=== PATIENT | female | born 1975 | race Caucasian/White ===

== ENCOUNTER 2025-05-10 14:44 | Outpatient (REF) | payer BC, SELFPAY ==
--- NOTE | 2025-05-10 | EMG_ITS ---
Chief complaint: numbness, weakness left quadricep Reason for referral: weakness left quadricep Referred by:?Bharati Barton PAC Procedure done: Left lower extremity NCS/EMG Description: Left tibial and peroneal motor studies were performed with F responses and tibial H-reflex was obtained. Left superficial peroneal and sural sensory studies were performed and median and lateral mixed plantars sensory studies were performed and needle examination was performed. Impression: This is an unremarkable study with no evidence of sensory or motor peripheral neuropathy or entrapment neuropathy or a proximal lesion. [facility]
--- OUTSIDE RECORDS SUMMARY | 2025-05-10 17:11 | XMS_ITS | Clinical Summary ---
Author Organization [facility] Address [address] [place] [address] Phone Care Team Providers Care Answering Service Telephone Operator Name Role Phone Ad Sandra MD Primary Care Provider + [phone] Allergies Active Allergy Reactions Criticality Noted Date Comments Adhesive Tape-Silicones 04/27/2025 Moxifloxacin 04/27/2025 Duloxetine 04/27/2025 Gluten 04/27/2025 Lactose 04/27/2025 Penicillin 04/27/2025 Beclomethasone Dipropionate 04/27/20 25 Medications ALPRAZolam (XANAX) 0.25 mg tablet Take 1 tablet (0.25 mg total) by mouth 3 (three) times a day if needed. for anxiety Max Daily Amount: 0.75 mg 04/17/20 25 Active azithromycin (ZITHROMAX) 250 mg tablet TAKE 2 TABLETS BY MOUTH ON DAY 1, AND THEN TAKE 1 TABLET BY MOUTH ONCE A DAY ON DAY 2 THROUGH DAY 5 10/29/19 25 Active chlorhexidine (PERIDEX) 0.12 % solution GENTLY RINSE MOUTH WITH 15ML TWICE DAILY DIRECTED DO NOT SWALLOW 10/29/19 25 Active cyclobenzaprine (FLEXERIL) 10 mg tablet TAKE 1 TABLET BY MOUTH THREE TIMES DAILY NEEDED FOR MUSCLE SPASM. MAY SEDATE. DO NOT DRIVE OR OPERATE HEAVY MACHINERY 03/18/20 25 Active Arnuity Ellipta 100 mcg/actuation blister with device inhaler Inhale 1 puff by mouth 1 (one) time each day at the same time. 04/17/20 25 Active ibuprofen (ADVIL,MOTRIN) 800 mg tablet TAKE 1 TABLET BY MOUTH THREE TIMES DAILY FOR SWELLING 10/29/19 25 Active levalbuterol (XOPENEX HFA) 45 mcg/actuation inhaler 2 puffs every 6 (six) hours. 11/15/19 25 Active loratadine (CLARITIN REDITABS) 10 mg dispersible tablet Dissolve 1 tablet (10 mg total) on top of the tongue 1 (one) time each day. Active hydrocortisone 2.5 % cream apply one application topically twice daily for 7 days 01/28/20 025 Discontinued Active Problems Problem Noted Date Diagnosed Date Weakness of left quadriceps muscle 04/27/2025 Assessment & Plan (04/27/2025 3:44 PM EDT): Patient has had 1+ month of low back pressure, left mid anterior thigh to mid sherwood/medial calf numbness, lower quad weakness. She recalls 03/16/2025 having some lumbar pressure and taking ibuprofen. When she got up in the morning 03/17/2025 after standing about 5 minutes in the shower she started getting increased low back pain, her quad was weak, she had fallen a few times when the quad would not function properly. She gets numbness in the medial anterior leg that has not improved over time. Some of the weakness has improved. She cannot recall any particular inciting event, trauma to the leg, fevers, flu symptoms, rash, tick bite, vaccines around that time, does not wear any tight belts or tight clothing. She does not have any blurred vision, neck pain, arm symptoms. She recalls in 2018 she had an episode where she felt weak bilaterally and fatigued, could not cook pickled meat her feet well, had to stop running, had difficulty with stairs. They did lots of blood work, the only thing that came back abnormal with slightly increased KYLIE, ruled out MS, EMGs came back normal. That resolved on its own. 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 She has been modifying her regular exercises, doing PT style exercises including quad strengthening, avoiding heavy weightlifting and running, is walking regularly. Patient had lumbar spine MRI 04/09/2025 [facility] with minimal degenerative changes including L5-S1 mild left central disc bulging/ small annular tear, she has tall disks, no significant central or foraminal stenosis at any level. We reviewed MRI images together on the computer. Ms. Rosas has unexplained left distal quad and proximal sherwood/calf numbness, quad weakness, has had a couple falls, no significant findings on lumbar MRI. We will check lower extremity EMG/NCS. She does have history of unexplained fatigue and weakness in 2018 that resolved on its own, slightly elevated KYLIE, ruled out MS, EMGs at that time were normal per patient. I will review all her results with Dr. Ziegler once the EMG is completed. If needed we can refer her to neurology or rheumatology. All questions answered. Encounters Date Type Department Care Team Description 05/04/2025 Telephone Neurosurgery [address] [address] Sol Yanez [place] 04/27/2025 2:00 PM EDT Consult [address] [address] Bharati Barton PA Weakness of left quadriceps muscle (Primary Dx) from Last 3 Months Surgical History Surgery Date Site/Laterality Comments APPENDECTOMY 1989 KNEE SURGERY Left knee chondroplasty EXCISIONAL HEMORRHOIDECTOMY With fistulotomy SECTION WISDOM TOOTH EXTRACTION Medical History Medical History Date Comments Asthma 2010 Migraine Family History Medical History Relation Name Comments Heart disease Father Ramon Shaffer Cancer Sister Rocío Arredondo Relation Name Status Comments Father Ramon Shaffer Sister Rocío Arredondo Social History Tobacco Use Types Packs/Day Years Used Date Smoking Tobacco: Former Cigarettes Smokeless Tobacco: Former Alcohol Use Standard Drinks/Week Comments Yes 5 (1 standard drink = 0.6 oz pur e alcohol) Comments Unknown Sex and Gender Information Value Date Recorded Sex Assigned at Not on file Legal Sex Female 10:27 AM EDT Gender Identity Not on file Sexual Orientation Not on file Obstetrics History Last Filed Vital Signs Vital Sign Reading Time Taken Comments Blood Pressure - - Pulse - - Temperature - - Respiratory Rate - - Oxygen Saturation - - Inhaled Oxygen Concentration - - Weight 50.8 kg (112 lb) 04/27/2025 2:07 PM EDT Height 157.5 cm (5' 2 ) 04/27/2025 2:07 PM EDT Body Mass Index 20.49 04/27/2025 2:07 PM EDT Plan of Treatment Health Maintenance Due Date Last Done Comments Breast Cancer Screening 1975 Colorectal Cancer Screening: Colonoscopy 1975 DTaP,Tdap,and Td Vaccines (1 - Tdap) 1992 Hepatitis B Vaccines (1 of 3 - 19+ 3-dose series) 1992 Cervical Cancer Screening: Pap Smear 1994 Pneumococcal Vaccine: 50+ Years (1 of 1 - PCV) 2023 Zoster Vaccines (1 of 2) 2023 Depression Screening 08/05/2024 COVID-19 Vaccine (4 - season) 2025 06/16/2021, 08/31/2020, 08/03/2020 Influenza Vaccine (#1) 2025 , 05/24/2023, 05/03/2022, Additional history exists HIV Screening 04/23/2025 Hepatitis C Screening 04/23/2025 Social Influencers of Health Screening 04/23/2025 RSV Immunization Adult Patients (1 - 1-dose 75+ series) 2048 HIB Vaccines Aged Out No longer eligi ble based on patient's age to complete this topic HPV Vaccines Aged Out No longer eligi ble based on patient's age to complete this topic Hepatitis A Vaccines Aged Out No long er eligible based on patient's age to complete this topic IPV Vaccines Aged Out No longer eligi ble based on patient's age to complete this topic MMR Vaccines Aged Out No longer eligi ble based on patient's age to complete this topic Meningococcal ACWY Vaccine Aged Out N o longer eligible based on patient's age to complete this topic Meningococcal B Vaccine Aged Out No l onger eligible based on patient's age to complete this topic RSV Immunization Patients Under 20 months Aged Out No longer eligible based on patient's age to complete this topic Varicella Vaccines Aged Out No longer eligible based on patient's age to complete this topic Insurance [facility] Care Teams Answering Service Telephone Operator Relationship Specialty Start Date End Date Ad Sandra MD [address] [place] [id number] PCP - General Internal Medicine 04/27/25
== END 2025-05-10 14:45 | disposition home or self-care (01) ==
LOC: HO.NEURO 14:44
PROVIDERS: Visit Provider Physician Assistant
DX: M62.81 Muscle weakness (generalized) (principal)
CPT/HCPCS: 95886; 95910

== ENCOUNTER → 2025-05-10 15:09 | Outpatient (BNV) | payer BC, SELFPAY | PROVIDERS: Visit Provider Psychiatry & Neurology Neurology | DX: R53.1 Weakness (principal); R20.2 Paresthesia of skin | CPT/HCPCS: 95886; 95910 ==

== ENCOUNTER 2025-06-23 13:31 | Outpatient (AMB) | payer BC, SELFPAY ==
--- OUTSIDE RECORDS SUMMARY | 2024-08-07 08:45 | XMS_ITS ---
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 Name Role Phone Angela Murrieta Primary Care Provider Unavaila Prahba Styles [phone] Encounters Encounter Location Date Provider Diagnosis [address] [address] 08/07/2024 Prabha Marquez Plan Of Treatment No Information Progress Notes * Gabrielle ROSAS MDOB: [birth year] (49 yo F)Acc No.[id number]:08/07/2024 Progress Notes Patient: Shannan DE LEÓNGabrielle REILLY Provider: Shannan Marquez DPM :1975 A ge:48 Y S ex:Female Date:08/07/2024 Address:[address] [place], [place] [id number] Pcp:Angela Murrieat Subjective: * Chief Complaints: * * Medical History: Objective: * Vitals: Assessment: Plan: * Treatment: * Images: * The named appointment provid er may or may not be the originator of this progress note, and it is not deemed complete until electronically signed by the appointment provider. Sign off status: Pending * Provider: Shannan Marquez DPM Date: 0 08/07/2024 Generated for Lashondai ng/Famalathig/eTransmitting on: 08/24/2024 01:32 AM EST
--- OUTSIDE RECORDS SUMMARY | 2025-06-19 23:59 | XMS_ITS | Continuity of Care Document ---
Author Organization [facility] Address [address] [address]- Support Name Relationship Address Phone PARDEEP LÓPEZ Unknown Unavailable NIKKI, BAUTITSA Personal Relationship Unknown Unava ilable NIKKI, BAUTISTA Personal Relationship Unknown Unava ilable NIKKI, BAUTISTA Personal Relationship Unknown Unava ilable NIKKI, BAUTISTA Personal Relationship Unknown Unava ilable JURCZYK, CHET Other Unknown Unavailabl e NIKKI, BAUTISTA Personal Relationship Unknown Unava ilable NIKKI, BAUTISTA Personal Relationship Unknown Unava ilable NIKKI, BAUTISTA Personal Relationship Unknown Unava ilable NIKKI, BAUTISTA Personal Relationship Unknown Unava ilable NIKKI, BAUTISTA Personal Relationship Unknown Unava ilable NIKKI, BAUTISTA Personal Relationship Unknown Unava ilable NIKKI, BAUTISTA Personal Relationship Unknown Unava ilable OLENA WOLFF domestic partner Unknown Unavail able NIKKI, BAUTISTA Personal Relationship Unknown Unava ilable NIKKI, BAUTISTA Personal Relationship Unknown Unava ilable NIKKI, BAUTISTA Personal Relationship Unknown Unava ilable NIKKI, BAUTISTA spouse Unknown Unavailable LOOKNER, CHET sibling Unknown Unavailabl e NIKKI, BAUTISTA Personal Relationship Unknown Unava ilable NIKKI, BAUTISTA Personal Relationship Unknown Unava ilable NIKKI, BAUTISTA Personal Relationship Unknown Unava ilable NIKKI, JOAQUIN sibling Unknown Unavailable NIKKI, BAUTISTA Personal Relationship Unknown Unava ilable NIKKI, BAUTISTA Personal Relationship Unknown Unava ilable NIKKI, BAUTISTA Personal Relationship Unknown Unava ilable NIKKI, BAUTISTA Personal Relationship Unknown Unava ilable JURCZRK, JOAQUIN sibling Unknown Unavailable Care Team Providers Care Rag Boiler Name Role Phone Agustin Patel MD, Sonny Ramos Primary Care Physic hernán Encounter [facility] Date(s): 05/20/25 - 06/19/25 [facility] [address] [place] [address]- Encounter Type: Triage Allergies, Adverse Reactions, Alerts Substance Criticality Severity Reaction Reaction Severity Status codeine VOMITS Active penicillin HIVES Active Imitrex Active Avelox HIVES Active Duloxetine dilation Active Demerol VOMITS Active Glutens GI symptoms Active Tape adhesive tape-rash A ctive Qvar tingling, lip swelling Active Immunizations Given and Recorded Vaccine Date Status Refusal Reason influenza virus vaccine, inactivated 05/22/24 Benito rded influenza virus vaccine, inactivated 05/24/23 Benito rded influenza virus vaccine, inactivated 05/03/22 Benito rded influenza virus vaccine, inactivated 05/23/21 Benito rded influenza virus vaccine, inactivated 05/09/20 Benito rded influenza virus vaccine, inactivated 05/15/18 Benito rded influenza virus vaccine, inactivated 05/30/17 Benito rded SARS-CoV-2 (COVID-19) mRNA-1273 vaccine 06/16/21 R ecorded SARS-CoV-2 (COVID-19) mRNA-1273 vaccine 08/31/20 R ecorded SARS-CoV-2 (COVID-19) mRNA-1273 vaccine 08/03/20 R ecorded tetanus/diphtheria/pertussis, acel(Tdap) 1 01/20/18 Given 1Result Comment: [01/20/2018] [facility]# [id number] pt. tolerated inj. without complications...CO Medications ALPRAZolam 0.25 mg oral tablet See Instructions, TAKE 1 TABLET BY MOUTH THREE TIMES A DAY NEEDED FOR ANXIETY, # 30 tablet, Refills 5, Tot. Refills 5, Maintenance, 12/07/24 3:42:00 PM EDT, Instructions Replace Required Details, Route to Pharmacy Electronically, [id number], 157, cm, 11/09/24 14:29:00 EDT, Height, 54.5,kg, 11/06/24 14:44:00 EDT, Dry Weight Start Date: 12/07/24 Status: Ordered Medication Dispense Status: Completed Quantity: 30.0 Unit: tablet Total Allowed Fills: 6 Fills Dispensed: 0 ALPRAZolam 0.25 mg oral tablet See Instructions, TAKE 1 TABLET BY MOUTH THREE TIMES A DAY NEEDED FOR ANXIETY, # 30 tablet, Refills 5, Tot. Refills 5, Maintenance, 05/24/25 9:47:00 PM EDT, Instructions Replace Required Details, Route to Pharmacy Electronically, [facility], 157, cm, 05/11/25 11:08:00 EDT, Height, 52.6, kg, 05/11/25 11:08:00 EDT, Dry Weight Start Date: 05/24/25 Status: Ordered Medication Dispense Status: Completed Quantity: 30.0 Unit: tablet Total Allowed Fills: 6 Fills Dispensed: 0 Arnuity Ellipta 100 mcg inhalation powder 1 puffs, Inhalation, Every 24 hours, # 30 each, 11 Refills, Maintenance, 10/30/24 4:20:00 PM EDT, [facility], 158, cm, 10/22/23 12:59:00 EDT, Height Start Date: 10/30/24 Status: Ordered Medication Dispense Status: Completed Quantity: 30.0 Unit: each Total Allowed Fills: 1 Fills Dispensed: 0 Golytely - oral powder for reconstitution See Instructions, Follow instructions from GI, # 4,000 mL, 0 Refills, Maintenance, 11/09/24 2:46:00 PM EDT, [facility], Partial fill upon patient request if the prescription is for a schedule II opioid drug., Follow instructions from GI, 157, cm, 11/09/24 14:29:00 EDT, Height, 54.5, kg, 11/06/24 14:44:00 EDT, Dry Weight Start Date: 11/09/24 Status: Ordered Medication Dispense Status: Completed Quantity: 4000.0 Unit: mL Total Allowed Fills: 1 Fills Dispensed: 0 Indications: Encounter for screening for malignant neoplasm of colon; ketoconazole 2% topical shampoo 1 application, Topically, Daily, PRN as needed, as directed on package labeling may repeat, # 120 mL, 11 Refills, Soft Stop, 10/24/23 1:26:00 PM EDT, Shampoo, [facility], 1 application Topically Daily,PRN:as needed,Instr:as directed on package labeling; may repeat, 158, cm, 10/22/23 12:59:00 EDT, Height Start Date: 10/24/23 Status: Ordered Medication Dispense Status: Completed Quantity: 120.0 Unit: mL Total Allowed Fills: 12 Fills Dispensed: 0 loratadine 10 mg oral tablet 1 tablet = 10 mg, By Mouth, Daily, 0 Refills, Maintenance, 04/04/15 3:20:53 PM EDT Start Date: 04/04/15 Status: Ordered Medication Dispense Status: Completed Total Allowed Fills: 1 Fills Dispensed: 0 naratriptan 2.5 mg oral tablet 1 tablet = 2.5 mg, By Mouth, Daily, may repeat once in 4 hours if needed, # 9 tablet, 11 Refills, Maintenance, 11/06/24 2:50:00 PM EDT, Tablet, [facility], 157, cm, 11/06/24 14:39:00 EDT, Height, 54.5, kg, 11/06/24 14:44:00 EDT, Dry Weight Start Date: 11/06/24 Status: Ordered Medication Dispense Status: Completed Quantity: 9.0 Unit: tablet Total Allowed Fills: 12 Fills Dispensed: 0 Xopenex HFA 45 mcg/inh inhalation aerosol 2 puffs, Inhalation, Every 6 hours, # 15 Gm, 11 Refills, Maintenance, 11/06/24 2:49:00 PM EDT, Aerosol, [facility], 157, cm, 11/06/24 14:39:00 EDT, Height, 54.5, kg, 11/06/24 14:44:00 EDT, Dry Weight Start Date: 11/06/24 Status: Ordered Medication Dispense Status: Completed Quantity: 15.0 Unit: g Total Allowed Fills: 12 Fills Dispensed: 0 Problem List Condition Confirmation Course Effective Dates Status Health St atus Informant Acne Confirmed 07/01/12 Active Allergic rhinitis Confirmed 07/01/12 Active Anxiety Confirmed Active Anxiety State, Unspecified Confirmed 07/01/12 Active Asthma Confirmed Active Chronic fatigue syndrome Confirmed Active Contact dermatitis Confirmed 02/16/13 Active Ex-cigarette smoker: quit ? 2012; smoked non daily for about 5 yrs Confirmed Active Family history of alcohol use disorder: father; pat. gr mother Confirmed Active Fatigue, profound Confirmed Active Fibromyalgia Confirmed Active History of motion sickness: car; sick on rides Confirmed Active Personal history of colonic polyps Confirmed Active Insomnia: problems with sleep induction Confirmed Active Palpitations, intermittent Confirmed Active Migraine Confirmed Active Risk assessment: Adverse Childhood Experience 1 Confirmed Active Routine medical exam Confirmed Active RUQ pain Confirmed Active Heart murmur, systolic; heard in sitting position/ not recumbent Confirmed Active Tubular adenoma Confirmed Active Tubular adenoma of colon 2 Confirmed 06/27/20 Active Well adult exam Confirmed 07/01/12 Active 1ACE score: 4 on 12/30/2019 2repeat screening colonoscopy in 2024 Social History Social History Type Response Smoking Status Never smoker entered on: 11/17/15 Sexual Orientation Self described orien tation: ; Straight or heterosexual Sex Sex Representation Female (finding) Patient Care team information Care Team Personnel Name: Agustin Patel MD, Sonny Ramos Position: [facility] Physician - Primary Care Member Role: PCP Address: [address] [place] [address] Telecom: Care Team Related Persons Name: OLENA WOLFF Name: JOAQUIN BERGMAN Name: CHET RODRIGUEZ Name: CHET EAGLE Insurance Providers Guarantor name: EDWIN MARIELLA Health Plan Information #: 1 Payer: Jongla O Payer Identifier: NA Member Number: [id number] Group Number: [id number] Subscriber Identifier: NA Relationship to Subscriber: self Coverage Type: NA Coverage Verification Date: NA Telecom: NA Address:
--- NOTE | 2025-06-23 13:45 | MHC.PC.OV ---
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: No Accompanied by: Self / Same As Patient Allergies beclomethasone (From Qvar) Allergy (Intermediate, Verified 06/23/25 13:58) tingling/lip swelling codeine Allergy (Intermediate, Verified 06/23/25 13:58) Vomiting duloxetine Allergy (Intermediate, Verified 06/23/25 13:58) dilation meperidine (From Demerol) Allergy (Intermediate, Verified 06/23/25 13:58) Vomiting Penicillins Allergy (Intermediate, Verified 06/23/25 13:58) Hives sumatriptan (From Imitrex) Allergy (Intermediate, Verified 06/23/25 13:58) Unknown moxifloxacin (From Avelox) Allergy (Mild, Verified 06/23/25 13:58) Hives adhesive tape Adverse Reaction (Intermediate, Verified 06/23/25 13:58) Rash gluten Adverse Reaction (Intermediate, Verified 06/23/25 13:58) GI symptoms Medication List - Last Reconciled 06/23/25 by Angela Murrieta MD alprazolam 0.25 mg PO TID PRN fluticasone furoate 100 mcg/actuation (Arnuity Ellipta) 1 inh inhalation DAILY levalbuterol tartrate 45 mcg/actuation 2 puffs inhalation Q6H loratadine (Claritin) 10 mg PO DAILY naratriptan 2.5 mg PO PRN Tobacco use date assessed: 06/23/25 Dental Screening Dental Screen Date: 06/23/25 Did you have a dental visit in the last 12 months?: Yes Did you have a dental problem in the last 6 months where you did not have access to dental care?: No Was dental information given to patient?: Patient has dentist HPI HPI Comments History of Present Illness Details The patient is a 49-year-old female presenting to [facility]. Left leg weakness: The patient reports a recent episode of neurological symptoms that began suddenly about three months ago with lower back pressure. This progressed to an inability to stand or sit, followed by left-sided quadriceps inhibition, sensory numbness over the anterior thigh, and a weak reflex. The pain radiated across her glute and down the front of her leg along the femoral nerve distribution. She was treated with a Medrol Dosepak and cyclobenzaprine without significant relief. Workup included an MRI and a negative EMG. She has experienced significant improvement over the last three weeks, with the return of full quad strength and complete resolution of numbness, and she was able to run three miles last weekend. Hypercholesterolemia: The patient has a history of high cholesterol, which was last checked about six months ago. There is a family history of hypercholesterolemia. Positive antinuclear antibody: The patient has a known history of a positive, nonspecific KYLIE, which was also present during a prior episode of unexplained symptoms a few years ago. Recent labs for inflammatory markers like ESR and CRP were normal. Menopausal symptoms: The patient is inquiring about hormone replacement therapy due to symptoms of fatigue, memory issues, and vaginal discomfort. She had an endometrial ablation a few years ago, which makes it difficult to gauge her menstrual cycle. Health Maintenance: The patient reports her recent mammogram was normal. She is due for a colonoscopy but has been experiencing significant delays in scheduling an appointment at [facility]. 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 - Exercise: Works out five days a week and was able to run three miles recently. [facility] Medical History (Updated 06/23/25 @ 17:06 by Angela Murrieta MD) Hyperlipidemia, unspecified Elevated antinuclear antibody (KYLIE) level Muscular aches Surgical History (Updated 06/23/25 @ 16:54 by Angela Murrieta MD) History of oophorectomy, unilateral Previous section H/O knee surgery S/P endometrial ablation History of colonoscopy (~06/22/20) Family History (Updated 06/23/25 @ 16:56 by Angela Murrieta MD) Father Colon polyp Other Alcoholism Atrial fibrillation Coronary artery disease Diabetes mellitus type 2 in nonobese FH: mental illness Hyperlipidemia, unspecified Primary hypertension Uterus problem Social History Housing: [place] Patient Tobacco Use Status: Former Tobacco user Years Smoked: 2-3 years during high school/college e-Cigarette/Vaping Use: Never Used Current occupational status: employed 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 1. Little interest or pleasure in doing things: not at all 2. Feeling down, depressed, or hopeless: not at all 3. Trouble falling or staying asleep, or sleeping too much: not at all 4. Feeling tired or having little energy: not at all 5. Poor appetite or overeating: not at all 6. Feeling bad about yourself - or that you are a failure or have let yourself or your family down: not at all 7. Trouble concentrating on things, such as reading the newspaper or watching television: not at all 8. Moving or speaking so slowly that other people could have noticed. Or the opposite - being so fidgety or restless that you have been moving around a lot more than usual: not at all 9. Thoughts that you would be better off or of hurting yourself in some way: not at all Total score: 0 Depression Screening Interpretation: Negative Depression Screening Done: Yes 06472 - PHQ-9 Billing: Yes Source: Developed by Drs. Tristen Mcknight, Shaye Medina, Kyaw Casey and colleagues, with an educational garth from [employer]. AUDIT C Alcohol Use Questionnaire (AUDIT-C) 1. How often do you have a drink containing alcohol?: Monthly or less 2. How many drinks containing alcohol do you have on a typical day when you are drinking?: 1 or 2 3. How often do you have six or more drinks on one occasion?: Never Total Score: 1 Review of Systems Narrative Review of Systems - Constitutional: Reports fatigue and memory fog. - Gastrointestinal: Denies abdominal pain - Musculoskeletal: Denies current back pain or weakness. - Neurological: Reports resolution of left leg numbness and quadriceps weakness. - Genitourinary: Reports vaginal discomfort. . Physical exam (Primary Care) Vital Signs: Last Vital Signs Temp 97.1 F 06/23/25 13:48 Pulse 66 06/23/25 13:48 Resp 16 06/23/25 13:48 BP 130/80 06/23/25 13:48 Pulse Ox 98 06/23/25 13:48 Oxygen Delivery Method Room Air 06/23/25 13:48 BMI result Body Mass Index 21.2 Tobacco/Smoking Status: Tobacco use Status Tobacco use date assessed 06/23/25 06/23/25 13:48 Patient Tobacco Use Status Former Tobacco user 06/23/25 13:54 e-Cigarette/Vaping Use Never Used 06/23/25 13:54 PHQ-9: PHQ-9 Score PHQ-9: Total score 0 06/23/25 14:45 Depression Screening Interpretation: Negative Narrative Physical Exam - HEENT: External auditory canals and tympanic membranes are clear bilaterally. Oropharynx is clear. - Cardiovascular: Normal heart sounds, regular rate and rhythm. - Pulmonary: Lungs are clear to auscultation bilaterally, no wheezes. - Abdomen: Soft, nontender to palpation, normoactive bowel sounds. - Neurological/Musculoskeletal: Motor strength is 5/5 in the bilateral lower extremities, including quadriceps. Coding Level of Care Code Est Pt Level 4 (65429) Complex EM visit Add On G2211 Diagnoses Muscular aches M79.10 Elevated antinuclear antibody (KYLIE) level R76.89 Familial hypercholesterolemia, unspecified type E78.019 Hyperlipidemia type: familial hypercholesterolemia Familial hypercholesterolemia type: unspecified type Additional Codes PHQ-9 - 16133 - PHQ-9 Billing: Yes ([id number]) Assessment & Plan Assessment & Plan (1) Muscular aches: Code(s): M79.10 - Myalgia, unspecified site Category: Medical (2) Elevated antinuclear antibody (KYLIE) level: Code(s): R76.89 - Other specified abnormal immunological findings in serum Category: Medical (3) Hyperlipidemia, unspecified: Code(s): E78.5 - Hyperlipidemia, unspecified Category: Medical Qualifiers: Hyperlipidemia type: familial hypercholesterolemia Familial hypercholesterolemia type: unspecified type Qualified Code(s): E78.019 - Familial hypercholesterolemia, unspecified Plan Assessment and Plan 1. Left leg weakness - The patient's recent episode of lower back pain with left-sided quadriceps inhibition and sensory loss has completely resolved. 2. Positive KYLIE - The patient has a history of a nonspecific positive KYLIE. While this may be related to her recent atypical neurological event, further evaluation is warranted to rule out an underlying connective tissue disorder. - Plan: Order additional rheumatology labs, including double-stranded DNA, Penaloza, and SENIOR ADVISOR antibodies. 3. Hypercholesterolemia - The patient has a family history and previously elevated cholesterol. - Plan: Order a fasting lipid panel to check the current trend. A statin will not be initiated at this time due to the patient's concern about potential muscle-related side effects and history of medication reactions. 4. Menopausal symptoms - The patient is experiencing fatigue, memory issues, and vaginal discomfort and is interested in exploring hormone replacement therapy (HRT). - Plan: Advised the patient to consult with her coding compliance manager, Dr. Shay, to discuss options for HRT. 5. Follow up in 5 months for physical Plan - Will order labs to investigate the positive KYLIE, including double-stranded DNA, Penaloza, and SENIOR ADVISOR antibodies. - Will order a fasting lipid panel to re-evaluate hypercholesterolemia. - Will order a TSH. - Patient advised to follow up with her coding compliance manager to discuss menopausal symptoms and potential hormone replacement therapy. - Patient will continue to attempt to schedule her overdue screening colonoscopy. Discussion Notes I have discussed the plan with the patient. Given her history of a nonspecific positive KYLIE and the recent, unusual neurological event, I am ordering a more specific rheumatology panel, including double-stranded DNA, Penaloza, and SENIOR ADVISOR antibodies, to screen for connective tissue disorders. We will also recheck her fasting cholesterol levels to assess the trend, but we are holding off on starting a statin at this time due to her history of medication reactions and concern for muscle-related side effects. 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 Patient Instructions - Please go for your blood work as discussed. You will need to be fasting (nothing to eat or drink except water) for the cholesterol test. - Contact your coding compliance manager (Dr. Shay's office) to schedule an appointment to discuss your menopausal symptoms and treatment options. - Continue to try to schedule your screening colonoscopy. Orders: Orders Anti DNA DS Antibody Today M79.10 - Myalgia, unspecified site, R76.89 - Other specified abnormal immunological findings in serum TSH reflex Free T4 Today M79.10 - Myalgia, unspecified site, R76.89 - Other specified abnormal immunological findings in serum Sm Sm/SENIOR ADVISOR Antibodies Today M79.10 - Myalgia, unspecified site, R76.89 - Other specified abnormal immunological findings in serum Lipid Panel Today E78.5 - Hyperlipidemia, unspecified KYLIE Reflex Titer and Pattern Today M79.10 - Myalgia, unspecified site, R76.89 - Other specified abnormal immunological findings in serum
[2025-06-23 13:48] VITALS: BP 130/80; PULSE 66; RESP 16; TEMP 36.2; O2SAT 98; BMI 21.2
--- OUTSIDE RECORDS SUMMARY | 2025-06-24 01:32 | XMS_ITS | Patient Health Record ---
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 Name Role Phone Angela Murrieta Primary Care Provider UnavailPrabha Victoria Unavailable [phone] Allergies Allergen (clinical drug ingredient) Drug/Non Drug Allergy documented on EMR Reaction Allergy Type Onset Date Status ciprofloxacin Cipro lip swelling Drug Allergy Active codeine Codeine Sulfate GI Drug Allergy A ctive demeclocycline Demeclocycline HCl GI Drug Allergy Active duloxetine Duloxetine HCl Pupil dialation Drug Allergy Active sumatriptan Imitrex neurovascular Drug Allergy A ctive Levaquin lip swelling Drug Allergy Acti ve Qvar neurovascular Drug Allergy Act mireille Adhesive blisters Allergy Active Gluten Gluten Unknown Allergy Active Lactose (Allergy) Unknown Allergy Ac tive Penicillin hives Drug Allergy Active Medicinal quinolone and acting as antibacterial agent (FN) Quinolones neurovascular Drug Allergy Active Reason For Referral No Information Medications Medication SIG (Take, Route, Frequency, Duration) Notes Start Date End Date Status Krill Oil 500 MG as directed Orally Not-Taking Xanax 0.25 MG 1 tablet Orally Twic e a day Not-Taking ALPRAZolam 0.25 MG 1 tablet Orally Twic e a day Active Magnesium Not-Taking Medrol maria teresa 4mg as directed orally a s directed; Duration: 6 days 06/26/2024 Active Naratriptan HCl 2.5 MG 1 tablet Orally O nce a day Active Aceves - as directed Orally N ot-Taking Xopenex HFA 45 MCG/ACT 1 puff as needed Inhalation every 6 hrs Active Arnuity Ellipta 100 MCG/ACT 1 puff Inhalation Once a day Active [place] 3 Not-Taking Loratadine 10 MG 1 tablet Orally Once a day; Duration: 30 day(s) Active Doxycycline Hyclate 50 MG 1 capsule Oral ly every 12 hrs; Duration: 10 day(s) Not-Taking Lo Loestrin Fe Not-T aking Zolpidem Tartrate 5 MG 1 tablet at bedti me Orally Once a day Not-Taking Flovent HFA 220 MCG/ACT 1 puff Inhalatio n Twice a day Not-Taking Restasis 0.05 % 1 drop into affected eye Ophthalmic Twice a day Not-Taking metroNIDAZOLE 0.75 % 1 application Externally Twice a day Not-Takin g Social History Tobacco Use: Social History Observation Description Date Details (start date - stop date) Former Smoker NA - NA Tobacco use other than smoking: Question Answer Notes Are you an other tobacco user? No Tobacco Control (Standard) Question Answer Notes Tobacco use: Former smoker Additional Findings: Tobacco non-user Current no nsmoker AUDIT-C (Standard) Question Answer Notes Did you have a drink contain ing alcohol in the past year? Yes How often did you have six o r more drinks on one occasion in the past year? Declined to specify (0 point) How many drinks did you have on a typical day when you were drinking in the past year? Declined to specify (0 point) How often did you have a dri nk containing alcohol in the past year? 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 Problem Juvenile osteochondrosis of the foot () Acquired Nina's deformity of right heel (M92.61) Active confirmed Problem Chronic fatigue syndrome (91267782) Chronic fatigue syndrome (R53.82) Active confirmed Vital Signs Blood pressure diastolic 60 mm Hg 06/26/2024 Height 5ft2in in 06/26/2024 Blood pressure systolic 100 mm Hg 06/26/2024 Weight 112 lbs 06/26/2024 BMI 20.48 kg/m2 06/26/2024 Encounters Encounter Location Date Provider Diagnosis [facility] [place] [address] [place] [address] 06/26/2024 Prabha Marquez Pain of right heel M79.671 ; Achilles tendinitis of right lower extremity M76.61 ; 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 ; Acquired Nina's deformity of right heel M92.61 ; Short Achilles tendon (acquired), right ankle M67.01 ; Achilles tendinitis of left lower extremity M76.62 ; Pain of left heel M79.672 ; Exostosis of left posterior calcaneus M77.32 ; Acquired Nina's deformity of left heel M92.62 and Short Achilles tendon (acquired), left ankle M67.02 [facility] [address] [address] 08/06/2024 Prabha Marquez Assessments Encounter Date Diagnosis (ICD Code) Assessment Notes Treatment Notes Treatment Clinical Notes Section Notes 06/26/2024 Pain of right heel (ICD-10 - M79.671) 06/26/2024 Achilles tendinitis of right lower extremity (ICD-10 - M76.61) Patient Educated with: HEEL CORD [email or web address].pdf (HEEL CORD STRETCHES.pdf) Patient Educated with: RICE [email or web address].pdf (RICE THERAPY.pdf) 06/26/2024 Exostosis of right posterior calcaneus (ICD-10 - M77.31) 06/26/2024 Acquired Nina's deformity of right heel (ICD-10 - M92.61) 06/26/2024 Short Achilles tendon (acquired), right ankle (ICD-10 - M67.01) 06/26/2024 Achilles tendinitis of left lower extremity (ICD-10 - M76.62) Patient Educated with: HEEL CORD STRETCHES.pdf (HEEL CORD STRETCHES.pdf) Patient Educated with: RICE [email or web address].pdf (RICE THERAPY.pdf) 06/26/2024 Pain of left heel (ICD-10 - M79.672) 06/26/2024 Exostosis of left posterior calcaneus (ICD-10 - M77.32) 06/26/2024 Acquired Nina's deformity of left heel (ICD-10 - M92.62) 06/26/2024 Short Achilles tendon (acquired), left ankle (ICD-10 - M67.02) Plan Of Treatment Pending Test Test Name Order Date X ray : Foot, left 3V 06/26/2024 X ray : Foot, right 3V 06/26/2024 Insurance Providers Payer Name Payer Address Payer Phone Subscriber Number Group Number Insured Name Patient Relationship to Insured Coverage Start Date Coverage End Date [facility] [employer] Others [address] [place] [address] [id number] Gabrielle Rosas Self - patient is the insured Medical (General) History Medical History History ICD Code Anxiety asthma Headaches Sciatica Rosacea occular rosacea Chicken pox Surgical History Surgery Date(Month/Year) fistula repair 12/2016 drainage of abcess knee surgery, left 10/2011 lasik 10/1998 oopherectomy 08/1989 ERS-Thoracic Surgery
== END 2025-06-23 14:44 | disposition home or self-care (01) ==
LOC: HO.HMCHD 13:32
PROVIDERS: PCP Internal Medicine; Visit Provider Internal Medicine
DX: M79.10 Myalgia, unspecified site (principal); R76.89 Other specified abnormal immunological findings in serum; E78.019 Familial hypercholesterolemia, unspecified

== ENCOUNTER → 2025-06-23 13:31 | Outpatient (BNVA) | payer BC, SELFPAY | PROVIDERS: PCP Internal Medicine; Visit Provider Internal Medicine | DX: M79.10 Myalgia, unspecified site (principal); R76.89 Other specified abnormal immunological findings in serum; E78.019 Familial hypercholesterolemia, unspecified; Z13.31 Encounter for screening for depression | CPT/HCPCS: 96127 ==